=== PATIENT | male | born 1965 | race Caucasian/White ===

== ENCOUNTER 2022-10-18 06:44 | Outpatient (CLI) | payer OTHER, SELFPAY ==
--- NOTE | ~2022-10-18 | CT_ITS ---
EXAMINATION: CT brain wo/w con DATE: 10/18/2022 07:29 INDICATION: Frequent headaches. Dizziness. TECHNIQUE: Computed tomography (CT) of the head was performed without and with 100 mL Omnipaque 350 i ntravenous contrast. The mA was adjusted according to patient size. Iterative reconstruction techniqu e was employed. The dose-length product was 1210.67 mGy-cm. COMPARISON: None FINDINGS: There are scattered areas of low attenuation in the cerebral white matter, which is within normal limits for the patient's age. There is no intracranial hemorrhage, acute infarction, or abnorm al intracranial mass lesion. The ventricles are normal in size. There is mild mucosal thickening in t he paranasal sinuses. The orbits are normal. The mastoid air cells are normal. IMPRESSION: 1. Normal aging brain. Reviewed, dictated and finalized at location A. [employer] IMPRESSION: 1. Normal aging brain.
== END 2022-10-18 06:45 | disposition home or self-care (01) ==
PROVIDERS: PCP Family Medicine; Visit Provider Family Medicine
DX: R42 Dizziness and giddiness (principal)
CPT/HCPCS: 70470; Q9967

== ENCOUNTER 2023-01-11 09:30 | Outpatient (RCR) | payer OTHER, SELFPAY ==
--- NOTE | 2022-12-18 16:45 | BUPTOPEVAL1 ---
Assessment and note entered by Anika Paniagua, PT Evaluation Information Assessment Status Evaluation Diagnosis cervicalgia, dizziness Onset 2019 Subjective Information Reports has been having worsening dizziness since 2019. States had been tracking since 2017. 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 Thinks also was better when was active. Doesn't notice with activity like golfing. Has been tracking symptoms. Found an ENT/ Neurologist in [place] Pt reports is partially retired, reports is on cancellation list for this Struggles with headaches and sleeping Reports went on a ski trip October 2022 and having increased pain since this point and increased dizziness Reports went to chiropractor and doing lymphatic massage and this helped a lot. Reports all of a sudden tingling in both hands and discomfort under sternum didn't go into doctor Has tried a few sleeping pills but not the knock out one . No history of anxiety Notices with bowling will get disoriented Reported Pain Level Pain Score 0: Self Report Assessment PT Clinical Summary Pt reports fpc dizziness. Reports dizziness effects his daily life,, including recreation and work activities. 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 Pt reports he also struggles with headaches and sleeping, Dizziness Handicap Index pt rates himself at moderate handicap, he denie's anxiety, has sought multiple avenues to relieve symptoms including chiropractic, sinus cleaning, lymphatic massage, and therapy previously. Evaluation today shows abnormal postures, resting muscle tone, decreased cervical range of motion, instability of right ankle. Show's no signs of BPPV, no nystagmus, and no increase in dizziness with [place] or rol
--- NOTE | 2022-12-26 11:09 | PCPTNOTE ---
Patient did not show up for scheduled appointment 12/24/22. Pt was called to offer a different appointment and did not answer or return voicemail.
--- NOTE | 2023-01-01 13:36 | PCPTNOTE ---
Patient called & cancelled scheduled appointment this date due to being called into work
--- NOTE | 2023-01-11 16:46 | PTOPPROG ---
Assessment and note entered by Anika Paniagua, PT Evaluation Information Assessment Status Progress Diagnosis cervicalgia Onset 2018 Subjective Information Pt reports neck pain has been improving. Mobility improved, lump that was hurting seems to be better. overall way better , but this morning not so much. couldn't get up this morning so thinks did sleep well. Reports sloshy more than dizzy this morning, feels neck i s poofy again. Thinks maybe needs to go back on sinutrol maybe some allergies. sloshy , felt like was doing good the last couple mornings and this morning is a little dizzy. Eyes feel like haven't slept, also fels nasaly. Overall the dizziness seems a little better Last two nights had difficculty sleeping Has been pretty good in tingling numbness since went to [facility] chiropractor ~5 weeks ago. [place] chiropractor got pt stated on the Dhist and Sinutrol so may go by and see if has any. Golfing is going good , doesn't notice dizziness as much outside. Cont to be miserable in the mornings. Assessment PT Clinical Summary Pt has attended 6 therapy sessions including evaluation. Pt reports overall cervical spine discomfort has lessened, range has improved and feels 60-70% improved overall. States today head feels sloshy and base of head/neck feels poofy as with swelling. Reports was doing better earlier in the week with these aspects. Pt demo's improved muscle tone at rest, improved ROM in cervical rotation, but decreased static balance scores in tandem with eyes closed compared to evaluation. No observable deficits with functional mobility getting up and down, or walking today. Initiated cervical traction today with therapy session. Discussed referral for sleep study as pt reports he has difficulty sleeping as well. Will continue therapy at a reduced rate in attempt to improve dizziness if is cervicogenic in nature and to improve cervical discomfort and goals. Plan of Care Interventions Electrical Stimulation,H
--- NOTE | 2023-01-22 16:40 | PCPTNOTE ---
Patient did not show up for scheduled appointment this date.
--- NOTE | 2023-01-22 16:45 | PTOPDC ---
Assessment and note entered by Anika Paniagua, PT Evaluation Information Assessment Status Discharge - Pt Not Present Diagnosis cervicalgia Onset 2019 Assessment PT Clinical Summary Pt attended 6 therapy sessions for dizziness that appears cervicogenic in nature. Due to department policy, pt has cancelled or had no-call/no-show sessions above the allowed sessions for continuity of care. Thus patient is being discharged from services due to nonattendance.
== END 2023-01-23 16:12 | disposition home or self-care (01) ==
LOC: ANHHIPT 09:30
PROVIDERS: PCP Family Medicine; Visit Provider Family Medicine
DX: M54.2 Cervicalgia (principal)
CPT/HCPCS: 97012; 97014; 97110; 97140; 97162; G0283